=== PATIENT | female | born 1965 | race Caucasian/White ===

== ENCOUNTER 2023-03-26 08:17 | Outpatient (CLI) | payer BC ==
[2023-03-26 09:32] LABS: #Eosinphils 0.1 10x3/uL (0.0-0.5); #Monocytes 0.4 10x3/uL (0.0-1.1); #Neutrophils 3.4 10x3/uL (1.5-8.4); %Basophils 0.7 % (0.0-2.0); %Eosinophils 1.1 % (0.0-6.0); %Lymphocytes 30.1 % (18.0-47.0); %Monocytes 7.9 % (0.0-10.0); Hemoglobin 13.7 g/dL (12.0-15.5); Mean Corpuscular HGB CONC 31.6 g/dL (32.0-36.0); Mean Corpuscular Hemoglobin 29.4 pg (27.0-33.0); Mean Corpuscular Volume 92.9 fl (81.6-98.3); Mean Platelet Volume 9.6 fl (7.4-10.4); Platelet Count 336 10x3/uL (150-450); RBC Distribution Width 13.2 % (11.5-14.5); Red Blood Cell (RBC) Count 4.66 10x6/uL (3.90-5.03); White Blood Cell (WBC) Count 5.6 10x3/uL (3.5-10.5)
== END 2023-03-26 08:18 | disposition home or self-care (01) ==
LOC: LABBT 08:17
PROVIDERS: ATTEND Orthopaedic Surgery Hand Surgery
DX: Z01.818 Encounter for other preprocedural examination (principal); M72.0 Palmar fascial fibromatosis [Dupuytren]
CPT/HCPCS: 85025; 93005; 93010

== ENCOUNTER 2023-03-30 11:51 | Day surgery (SDC) | payer BC ==
[2023-03-26 08:43] VITALS: BMI 26.6
[2023-03-30] MEDS ORDERED: fentaNYL PF 100 MCG/2 ML SYRINGE ONE (12:38)
[2023-03-30] MEDS ORDERED: Vancomycin 1 GM VIAL ONE (12:56)
[2023-03-30] MEDS ORDERED: Bupivacaine PF 0.5% 30 ML VIAL ONE (12:56)
[2023-03-30] MEDS ORDERED: Betamet Acet/Betamet Na Ph 30 MG/5 ML VIAL ONE (12:56)
[2023-03-30] MEDS ORDERED: Bacitracin Zinc Ointment 30 gm TUBE ONE (12:56)
[2023-03-30] MEDS ORDERED: Sodium Chloride 0.9% 100 ML ONE (13:12)
[2023-03-30] MEDS ORDERED: CEFAZOLIN 2 GM VIAL ONE (13:12)
[2023-03-30] MEDS ORDERED: Ketorolac Tromethamine 30 MG/ML VIAL ONE ×2 (14:08→16:01)
[2023-03-30] MEDS ORDERED: PROPOFOL 200 MG/20 ML VIAL ONE (14:08)
[2023-03-30] MEDS ORDERED: Ondansetron PF 4 MG/2 ML Vial ONE (14:08)
[2023-03-30] MEDS ORDERED: ePHEDrine Sulfate 50 MG/10 ML VIAL ONE (14:08)
== END 2023-03-30 17:00 | disposition home or self-care (01) ==
LOC: SDC 11:51
PROVIDERS: ATTEND Orthopaedic Surgery Hand Surgery
PROC: 0RBW0ZZ Excision of Right Finger Phalangeal Joint, Open Approach (ICD-10-PCS; principal; 2023-03-30)
PROC: 0JNJ0ZZ Release Right Hand Subcutaneous Tissue and Fascia, Open Approach (ICD-10-PCS; principal; 2023-03-30)
DX: M72.0 Palmar fascial fibromatosis [Dupuytren] (principal); M67.441 Ganglion, right hand; E78.5 Hyperlipidemia, unspecified; E03.9 Hypothyroidism, unspecified; Z79.82 Long term (current) use of aspirin; Z79.890 Hormone replacement therapy; Z79.899 Other long term (current) drug therapy
CPT/HCPCS: 88304; J0702; J1885; J2405; J2704; J3370; J3490; S0020